=== PATIENT | male | born 1970 | race American Indian/Alaskan Native ===

== ENCOUNTER 2017-03-12 13:47 | Emergency (ER) | payer OTHER ==
[~2017-03-12] VITALS: Ht 177.8 cm; Wt 98.0 kg
[2017-03-12 13:59] VITALS: BP 128/83
[2017-03-12] MEDS ORDERED: HYDROcodone/APAP 5/325 TABLET ONE (14:47)
[2017-03-12] MEDS ORDERED: ONDANSETRON ODT 4 MG ONE (14:47)
[2017-03-12] MEDS ORDERED: HYDROcodone/APAP 5/325 TABLET PO ONE (15:00)
[2017-03-12] MEDS ORDERED: ONDANSETRON ODT 4 MG PO ONE (15:00)
== END 2017-03-12 15:14 | disposition home or self-care (01) ==
LOC: ED 14:53
DX: M25.462 Effusion, left knee (principal); M25.562 Pain in left knee
CPT/HCPCS: 73564; 99284; Q0162